=== PATIENT | male | born 1985 | race Caucasian/White ===

== ENCOUNTER 2020-03-06 23:07 | Emergency (ER) | payer MEDICAID ==
[~2020-03-06] VITALS: Ht 180.3 cm; Wt 78.2 kg
[2020-03-06 23:11] VITALS: BP 145/89
== END 2020-03-07 01:47 | disposition home or self-care (01) ==
LOC: ED 03-07 01:21
DX: S46.012A Strain of muscle(s) and tendon(s) of the rotator cuff of left shoulder, initial encounter (principal); W19.XXXA Unspecified fall, initial encounter; Y93.89 Activity, other specified; Y92.89 Other specified places as the place of occurrence of the external cause; Y99.8 Other external cause status
CPT/HCPCS: 99283